=== PATIENT | female | born 1965 | race Two or more races ===

== ENCOUNTER 2016-05-28 17:44 | Emergency (ER) | payer SELFPAY ==
[~2016-05-28] VITALS: Ht 162.6 cm; Wt 59.0 kg
[2016-05-28] MEDS ORDERED: KETOROLAC TROMETHAMINE INJ 30 MG/ML VIAL ONE (18:47)
[2016-05-28 18:54] VITALS: BP 139/70
[2016-05-28] MEDS ORDERED: KETOROLAC TROMETHAMINE INJ 60 MG/2 ML VIAL IM ONE (19:00)
== END 2016-05-28 18:57 | disposition home or self-care (01) ==
LOC: ER 17:46
DX: S29.9XXA Unspecified injury of thorax, initial encounter (principal); Z88.8 Allergy status to other drugs, medicaments and biological substances; W86.8XXA Exposure to other electric current, initial encounter; Y93.89 Activity, other specified; Y92.89 Other specified places as the place of occurrence of the external cause; Y99.9 Unspecified external cause status
CPT/HCPCS: A4606; J1885; Z7610